=== PATIENT | female | born 2000 | race Caucasian/White ===

== ENCOUNTER → 2025-01-17 | Day surgery (SDC) | payer MEDICAID ==
[2025-01-14 14:58] LABS: Hematocrit 42.0 % (36.0-46.0); Hemoglobin 14.6 g/dL (12.2-16.2); Mean Corpuscular Hemoglobin 30.9 pg (28.0-32.0); Mean Corpuscular Volume 89.1 fL (80.0-100.0); Nucleated Red Blood Cells % 0.1 %
[2025-01-14 15:09] LABS: INR 1.01 (0.9-1.15); Partial Thromboplastin Time 30.8 SEC (24.5-34.5); Prothrombin Time 10.7 sec (9.3-11.8)
[2025-01-14 15:20] LABS: Alanine Aminotransferase 37 U/L (7-40); Anion Gap 7 (5-15); BUN/Creatinine Ratio 12.2 (10.0-20.0); Blood Urea Nitrogen 10 mg/dL (9-23); Calcium 10.1 mg/dL (8.7-10.4); Carbon Dioxide 25 mmol/L (20-31); Chloride 106 mmol/L (98-107); Glucose 96 mg/dL (74-106); Potassium 4.0 mmol/L (3.5-5.1); Sodium 138 mmol/L (136-145); Total Protein 7.4 g/dL (5.7-8.2)
[2025-01-14 15:21] LABS: Albumin 4.8 g/dL (3.2-4.8); Alkaline Phosphatase 45 U/L (46-116); Bilirubin, Total 0.5 mg/dL (0.2-1.0)
[~2025-01-17] VITALS: Ht 160 cm; Wt 100.7 kg
[2025-01-17] MEDS: fentaNYL CITRATE 100 MCG/2 ML VL ONE (10:48)
[2025-01-17] MEDS: MIDAZOLAM HCL 2MG/2ML 2ml VIAL (1mg/ml) ONE ×2 (10:48→11:00)
[2025-01-17 11:09] VITALS: RESP 26; TEMP 97.8; O2SAT 100
--- NOTE | 2025-01-17 11:13 | DVHNC2 ---
Procedure - PROCEDURE DAY JANUARY 17, 2025 PERFORMED BY: DR. ENCARNACION REFERRING PROVIDER:DR FELICIA WELLS PROCEDURE PERFORMED: 1. COLONOSCOPY WITH MODERATE SEDATION 2. COLONOSCOPY WITH COLD BIOPSY POLYPECTOMY 3.COLONOSCOPY WITH COLD BIOPSY PREPROCEDURE DIAGNOSIS: 1. ABDOMINAL PAIN 2. HEMATOCHEZIA 3. LOOSE STOOLS POSTPROCEDURE DIAGNOSIS: 1. TWO COLON POLYPS 2. NORMAL TERMINAL ILEUM S/P BIOPSY 3. SMALL INTERNAL EXTERNAL HEMORRHOIDS MEDICATIONS USED;8MG OF VERSED AND 100 MCG OF FENTANYL IV INDICATIONS FOR PROCEDURE: THE PATIENT IS A 24-YEAR-OLD FEMALE WITH A HISTORY OR WHEEZE STOOLS, ABDOMINAL PAIN AND HEMATOCHEZIA DETAILS OF THE PROCEDURE: INFORMED CONSENT WAS OBTAINED AFTER RISKS BENEFITS AND ALTERNATIVES WERE DISCUSSED AT LENGTH WITH THE PATIENT. THE PATIENT GAVE CONSENT TO THE PROCEDURES WELL A MEDICATION USED FOR SEDATION. RECTAL EXAMINATION SHOWED SMALL INTERNAL AND EXTERNAL HEMORRHOIDS. OLYMPUS VARIABLE TORSION ADULT COLONOSCOPE WAS INSERTED INTO THE RECTUM ADVANCE THE CECUM. THE CECUM WAS IDENTIFIED BY THE ILEOCECAL VALVE AND APPENDICEAL ORIFICE. THE SCOPE WAS THEN WITHDRAWN. THE TERMINAL ILEUM WAS INTUBATED AND FOUND TO BE NORMAL. BIOPSIES WERE TAKEN GIVEN THE SYMPTOMS. THE SCOPE WAS THEN WITHDRAWN. THERE WAS A 2 MM ASCENDING COLON POLYP REMOVED WITH COLD BIOPSY FORCEPS. THERE WAS A SMALL SPOT IN THE RECTUM POSSIBLE POLYP MEASURING 2 MM POLYP REMOVED WITH COLD BIOPSY FORCEPS. BOSTON PREP SCORE OF EIGHT WAS NOTED. THE PREP WAS GOOD WITH ONLY SMALL AMOUNTS OF STOOL. THERE WERE NO LARGE POLYPS, MASSES, STRICTURES, OR ARTERIOVENOUS MALFORMATION SEEN. RETROFLEXION SHOWED INTERNAL HEMORRHOIDS. BOSTON BOWEL SCORE: COLONOSCOPY START TIME:1058A.M. COLONOSCOPY CECUM TIME: 1100A.M. COLONOSCOPY END TIME: 1106A.M. IMPRESSION: 1. TWO SMALL COLON POLYPS 2. SMALL INTERNAL AND EXTERNAL HEMORRHOIDS PATIENT'S SYMPTOMS MAY BE SECONDARY TO IRRITABLE BOWEL SYNDROME WITH BLEEDING FROM HEMORRHOIDS VERSUS OTHER. CONSIDER UPPER GI ETIOLOGY SUCH SIBO, CELIAC DISEASE BILIARY DISEASE WERE OTHER RECOMMENDATIONS: 1. FOLLOW UP WITH PRIMARY CARE PHYSICIAN 2. HIGH-FIBER DIET 3. REPEAT COLONOSCOPY IN FIVE YEARS OF THE PATIENT'S POLYP IS ADENOMATOUS 4. CONSIDER MEDICAL MANAGEMENT OF HEMORRHOIDS 5. CONSIDER ENDOSCOPY AND/OR BILIARY WORKUP I WOULD LIKE TO THANK DR. WELLS FOR THE REFERRAL RAJENDRA ENCARNACION MD Jan 17, 2025 11:13
[2025-01-17 11:30] VITALS: BP 116/71; PULSE 97; RESP 19; O2SAT 100
== END | disposition home or self-care (01) ==
LOC: GI 09:35
PROVIDERS: ATTEND Specialist
DX: K59.09 Other constipation (principal); D12.2 Benign neoplasm of ascending colon; R10.84 Generalized abdominal pain; K92.1 Melena; K64.4 Residual hemorrhoidal skin tags; K64.8 Other hemorrhoids
CPT/HCPCS: 36415; 45380; 80053; 81025; 85025; 85610; 85730; J2250; J3010